=== PATIENT | male | born 1980 | race Caucasian/White ===

== ENCOUNTER → 2017-09-05 | Emergency (ER) | payer OTHER ==
[~2017-09-05] VITALS: Ht 160 cm; Wt 54.4 kg
[~2017-09-05] MED LIST: ALBUTEROL2.5 MG/3 M IH; TRIUMEQ TABLET1 EACH PO; ZYNCOF 20-400120 ML PO
== END | disposition home or self-care (01) ==
LOC: ER 22:21
DX: J40 Bronchitis, not specified as acute or chronic (principal); B20 Human immunodeficiency virus [HIV] disease

== ENCOUNTER 2017-11-13 08:35 | Emergency (ER) | payer OTHER ==
[~2017-11-13] VITALS: Ht 162.6 cm; Wt 56.7 kg
[2017-11-13] MEDS ORDERED: TRIUMEQ TABLET1 EACH (08:43)
[2017-11-13] MEDS ORDERED: MEDROLPACK PO (12:59)
[2017-11-13] MEDS ORDERED: DICLOFENAC POTA50 MG PO (12:59)
== END 2017-11-13 13:14 | disposition home or self-care (01) ==
LOC: ER 08:35
DX: S00.83XA Contusion of other part of head, initial encounter (principal); S20.212A Contusion of left front wall of thorax, initial encounter; S20.211A Contusion of right front wall of thorax, initial encounter; Y08.89XA Assault by other specified means, initial encounter; Y93.89 Activity, other specified; Y92.89 Other specified places as the place of occurrence of the external cause; Y99.8 Other external cause status

== ENCOUNTER 2019-09-03 18:20 | Emergency (ER) | payer OTHER ==
[~2019-09-03] VITALS: Ht 162.6 cm; Wt 56.7 kg
[~2019-09-03 18:20] MED LIST changes: +DICLOFENAC POTA50 MG PO; +MEDROLPACK PO; +TRIUMEQ TABLET1 EACH
[2019-09-03] MEDS ORDERED: NASAL MIST126 ML (18:44)
[2019-09-03] MEDS ORDERED: FLORANEX TABLE1 EACH (18:44)
== END 2019-09-03 23:38 | disposition home or self-care (01) ==
LOC: ER 18:20
DX: B20 Human immunodeficiency virus [HIV] disease (principal); K80.80 Other cholelithiasis without obstruction

== ENCOUNTER 2019-10-30 09:16 | Emergency (ER) | payer OTHER ==
[~2019-10-30] VITALS: Ht 162.6 cm; Wt 58.1 kg
[~2019-10-30 09:16] MED LIST changes: +FLORANEX TABLE1 EACH; +NASAL MIST126 ML
[2019-10-30] MEDS ORDERED: ZYRTEC10 M3 (09:26)
[2019-10-30] MEDS ORDERED: PRILOSEC OTC20 MG (09:27)
[2019-10-30] MEDS ORDERED: BENTYL10 MG/1 ML (09:27)
== END 2019-10-30 13:29 | disposition home or self-care (01) ==
LOC: ER 09:16
DX: B20 Human immunodeficiency virus [HIV] disease (principal); R17 Unspecified jaundice; B15.9 Hepatitis A without hepatic coma; B19.10 Unspecified viral hepatitis B without hepatic coma; R16.0 Hepatomegaly, not elsewhere classified

== ENCOUNTER → 2019-11-02 | Outpatient (CLI) | payer OTHER ==
[~2019-11-02] MED LIST changes: +BENTYL10 MG/1 ML; +PRILOSEC OTC20 MG; +ZYRTEC10 M3
== END | disposition home or self-care (01) ==
LOC: MRI 07:15
DX: R17 Unspecified jaundice (principal)
CPT/HCPCS: 74183

== ENCOUNTER 2020-01-12 12:29 | Emergency (ER) | payer OTHER ==
[~2020-01-12] VITALS: Ht 162.6 cm; Wt 55.3 kg
== END 2020-01-12 18:53 | disposition home or self-care (01) ==
LOC: ER 12:29
DX: B34.9 Viral infection, unspecified (principal)

== ENCOUNTER 2021-08-03 11:29 | Emergency (ER) | payer OTHER ==
[~2021-08-03] VITALS: Ht 160 cm; Wt 54.4 kg
[2021-08-03] MEDS ORDERED: CLEOCIN HCL300 MG (11:44)
[2021-08-03] MEDS ORDERED: HIBICLENS118 ML TOP (12:20)
[2021-08-03] MEDS ORDERED: INTESTINEX680 M1 PO (12:20)
== END 2021-08-03 12:47 | disposition home or self-care (01) ==
LOC: ER 11:29
DX: B20 Human immunodeficiency virus [HIV] disease (principal); L02.215 Cutaneous abscess of perineum

== ENCOUNTER 2021-09-28 13:43 | Emergency (ER) | payer OTHER ==
[~2021-09-28] VITALS: Ht 162.6 cm; Wt 59.0 kg
[~2021-09-28 13:43] MED LIST changes: +CLEOCIN HCL300 MG; +HIBICLENS118 ML TOP; +INTESTINEX680 M1 PO
[2021-09-28] MEDS ORDERED: PEPCID AC20 MG PO (18:04)
[2021-09-28] MEDS ORDERED: PROBIOTIC1 EAC4 PO (18:04)
== END 2021-09-28 18:18 | disposition home or self-care (01) ==
LOC: ER 13:43
DX: E86.0 Dehydration (principal); R19.7 Diarrhea, unspecified; Z20.822 Contact with and (suspected) exposure to COVID-19; B34.9 Viral infection, unspecified

== ENCOUNTER 2021-10-22 09:07 | Emergency (ER) | payer OTHER ==
[~2021-10-22] VITALS: Ht 162.6 cm; Wt 56.7 kg
[~2021-10-22 09:07] MED LIST changes: +PEPCID AC20 MG PO; +PROBIOTIC1 EAC4 PO
== END 2021-10-22 12:59 | disposition home or self-care (01) ==
LOC: ER 09:07
DX: K80.20 Calculus of gallbladder without cholecystitis without obstruction (principal)

== ENCOUNTER 2022-01-30 10:32 | Emergency (ER) | payer OTHER ==
[~2022-01-30] VITALS: Ht 165.1 cm; Wt 54.4 kg
== END 2022-01-30 13:11 | disposition home or self-care (01) ==
LOC: ER 10:32
DX: J03.80 Acute tonsillitis due to other specified organisms (principal); B96.89 Other specified bacterial agents as the cause of diseases classified elsewhere

== ENCOUNTER 2022-07-16 11:49 | Emergency (ER) | payer OTHER ==
[~2022-07-16] VITALS: Ht 162.6 cm; Wt 49.9 kg
[2022-07-16] MEDS ORDERED: DOLOGEN CAPLET1 EACH PO (17:18)
== END 2022-07-16 18:43 | disposition home or self-care (01) ==
LOC: ER 11:49
DX: A90 Dengue fever [classical dengue] (principal); Z20.822 Contact with and (suspected) exposure to COVID-19

== ENCOUNTER 2023-01-24 18:22 | Emergency (ER) | payer OTHER ==
[~2023-01-24] VITALS: Ht 162.6 cm; Wt 54.4 kg
[~2023-01-24 18:22] MED LIST changes: +DOLOGEN CAPLET1 EACH PO
== END 2023-01-24 21:28 | disposition home or self-care (01) ==
LOC: ER 18:22
DX: K52.89 Other specified noninfective gastroenteritis and colitis (principal); R10.9 Unspecified abdominal pain; R11.10 Vomiting, unspecified; A08.8 Other specified intestinal infections; E86.0 Dehydration; Z20.822 Contact with and (suspected) exposure to COVID-19

== ENCOUNTER 2024-01-18 14:26 | Emergency (ER) | payer OTHER ==
[~2024-01-18] VITALS: Ht 162.6 cm; Wt 54.4 kg
[2024-01-18] MEDS ORDERED: KETOROLAC TROMETHAMINE 60 MG VIAL IM ONE (17:15)
[2024-01-18] MEDS ORDERED: 0.9 % SODIUM CHLORIDE 500 ML IV SCH (17:15)
[2024-01-18 18:06] LABS: HEMATOCRIT 33.1 % (39.0-48.0); HEMOGLOBIN 10.8 g/dL (13-16.00); MEAN CELL VOLUME 84.3 fL (80.0-100.00); MEAN CORPUSCULAR HEMOGLOBIN 27.4 pg (27.00-32.0); MEAN CORPUSCULAR HGB CONC 32.5 g/dl (32.0-36.0); PLATELET COUNT 198 K/uL (150-450); RED BLOOD COUNT 3.93 M/uL (4.00-6.00); RED CELL DISTRIBUTION WIDTH 14.8 % (11.5-14.5)
[2024-01-18 18:42] LABS: ALBUMIN 2.6 gm/dL (3.4-5.0); BILIRUBIN TOTAL 0.35 mg/dL (0.3-1.2); CALCIUM 8.5 mg/dL (8.5-10.1); GFR 81.55; GLOBULINA 5.8 G/DL (2.4-3.5); POTASSIUM 4.25 mEq/L (3.5-5.1); TOTAL PROTEIN 8.4 gm/dL (6.4-8.2)
[2024-01-18 19:01] LABS: PH,URINE 6.5 (5.0-8.0); URINE APPEARANCE Clear; URINE BILIRRUBIN Negative (NEGATIVE); URINE BLOOD Negative; URINE COLOR Yellow; URINE GLUCOSE Negative (NEGATIVE); URINE LEUKOCYTE Negative; URINE NITRATE Negative; URINE PROTEIN Negative (NEGATIVE); URINE UROBILINOGEN 0.2 E.U./dl
[2024-01-18 19:04] LABS: URINE BACTERIA 16.3 uL (0.0-1933); URINE WBC 1.9 uL (0.0-23.2)
[2024-01-18 19:05] LABS: URINE EPITHELIAL CELLS 0.9 uL (0.0-38.8); URINE RBC 1.9 uL (0.0-20.8)
[2024-01-18] MEDS ORDERED: AZITHROMYCIN 500 MG TABLET PO ONE (21:45)
[2024-01-18] MEDS ORDERED: CEFTRIAXONE SODIUM 1,000 MG VIAL IV ONE (22:00)
[2024-01-18] MEDS ORDERED: LOPERAMIDE HCL 2 MG CAPSULE PO ONE (22:00)
== END 2024-01-18 22:17 | disposition home or self-care (01) ==
LOC: ER 14:27
PROVIDERS: Emergency Medicine
DX: J40 Bronchitis, not specified as acute or chronic (principal); J32.9 Chronic sinusitis, unspecified; R19.7 Diarrhea, unspecified

== ENCOUNTER 2024-11-11 12:29 | Emergency (ER) | payer OTHER ==
[~2024-11-11] VITALS: Ht 162.6 cm; Wt 49.9 kg
[2024-11-11] MEDS ORDERED: 0.9 % SODIUM CHLORIDE 1,000 ML IV STA (13:44)
[2024-11-11 14:40] LABS: HEMATOCRIT 31.7 % (39.0-48.0); MEAN CELL VOLUME 83.2 fL (80.0-100.00); MEAN CORPUSCULAR HEMOGLOBIN 27.2 pg (27.00-32.0); MEAN CORPUSCULAR HGB CONC 32.7 g/dl (32.0-36.0); PLATELET COUNT 460 K/uL (150-450); RED BLOOD COUNT 3.81 M/uL (4.00-6.00); RED CELL DISTRIBUTION WIDTH 15.9 % (11.5-14.5)
[2024-11-11 14:41] LABS: HEMOGLOBIN 10.4 g/dL (13-16.00)
[2024-11-11 15:01] LABS: PH,URINE 6.5 (5.0-8.0); URINE APPEARANCE Clear; URINE BILIRRUBIN Negative (NEGATIVE); URINE BLOOD Negative; URINE COLOR Yellow; URINE GLUCOSE Negative (NEGATIVE); URINE KETONE Trace (NEGATIVE); URINE LEUKOCYTE Small; URINE NITRATE Negative; URINE PROTEIN 30 (NEGATIVE); URINE UROBILINOGEN 0.2 E.U./dl
[2024-11-11 15:05] LABS: URINE BACTERIA 37.9 uL (0.0-1933); URINE EPITHELIAL CELLS 21.2 uL (0.0-38.8); URINE RBC 11.7 uL (0.0-20.8); URINE WBC 123.6 uL (0.0-23.2)
[2024-11-11 15:22] LABS: URINE CAST 0.58 uL (0.0-1.40)
[2024-11-11 15:23] LABS: URINE CRYSTALS FEW /HPF
[2024-11-11 15:30] LABS: INFLUENZA A AG NEGATIVE (NEGATIVE)
[2024-11-11 15:45] LABS: ALBUMIN 2.9 gm/dL (3.4-5.0); ALKALINE PHOSPHATASE 115 U/L (50-136); ALT/SGPT 87 U/L (12-78); ANION GAP 10 (10.0-20.0); AST/SGOT 87 U/L (15-37); BILIRUBIN TOTAL 0.23 mg/dL (0.3-1.2); BILIRUBIN,CONJUGATED < 0.10 mg/dL (0.0-0.2); BILIRUBIN,UNCONJUGATED 0.13 mg/dL (0.0-0.6); BLOOD UREA NITROGEN 9 mg/dL (7-18); BUN CREA RATIO 13 (7.0-25.0); CALCIUM 8.4 mg/dL (8.5-10.1); CARBON DIOXIDE 28 mEq/L (21-32); CHLORIDE 105 mmol/L (98-107); GFR 122.51; GLUCOSE FASTING 87 mg/dL (65-100); OSMOLALITY SERUM 276 MOSM/KG (275-295); POTASSIUM 3.59 mEq/L (3.5-5.1); SODIUM 139 mmol/L (136-145); TOTAL PROTEIN 8.9 gm/dL (6.4-8.2)
[2024-11-11 15:56] LABS: C-REACTIVE PROTEIN 0.66 MG/DL (0.00-0.29)
[2024-11-11] MEDS ORDERED: FAMOTIDINE/PF 20 MG in 0.9 % SODIUM CHLORIDE 8 ML IV PUSH STA (16:54)
[2024-11-11] MEDS ORDERED: FAMOTIDINE/PF 20 MG/2 ML VIAL ONE (16:57)
[2024-11-11] MEDS ORDERED: CIPROFLOXACIN IN 5 % DEXTROSE 400 MG/200 ML PIGGYBAG IV ONE ×2 (16:57→17:00)
[2024-11-11] MEDS ORDERED: CIPRO500 MG PO (17:11)
[2024-11-11] MEDS ORDERED: FLUCONAZOLE100 MG PO (17:11)
== END 2024-11-11 19:37 | disposition home or self-care (01) ==
LOC: ER 12:39
PROVIDERS: General Practice
DX: R19.7 Diarrhea, unspecified (principal); B20 Human immunodeficiency virus [HIV] disease

== ENCOUNTER 2024-12-09 11:41 | Emergency (ER) | payer OTHER ==
[~2024-12-09] VITALS: Ht 162.6 cm; Wt 46.3 kg
[~2024-12-09 11:41] MED LIST changes: +CIPRO500 MG PO; +FLUCONAZOLE100 MG PO
[2024-12-09] MEDS ORDERED: [UNRECOGNIZED DRUG - OTHER] PO (12:12)
[2024-12-09] MEDS ORDERED: 0.9 % SODIUM CHLORIDE 1,000 ML IV STA (14:52)
[2024-12-09] MEDS ORDERED: FAMOtidine 10 MG/ML (4ML VIAL) IV PUSH STA (14:53)
[2024-12-09] MEDS ORDERED: HYOSCYAMINE SULFATE 0.125 MG TAB.SUBL SL ONE (15:00)
[2024-12-09] MEDS ORDERED: FAMOTIDINE/PF 20 MG/2 ML VIAL ONE (15:20)
[2024-12-09] MEDS ORDERED: HYOSCYAMINE SULFATE 0.125 MG TAB.SUBL ONE (15:20)
[2024-12-09 15:49] LABS: BASO % 0.7 % (0.1-1.2); EOS # 0.16 (0.04-0.54); EOS % 2.8 % (0.7-7.0); HEMATOCRIT 30.7 % (40.1-51.0); HEMOGLOBIN 9.9 g/dL (13.7-17.5); LYMPH # 2.38 (1.18-3.74); LYMPH % 41.3 % (19.3-53.1); MEAN CORPUSCULAR HEMOGLOBIN 27.1 pg (25.6-32.2); MONO # 0.42 (0.24-0.82); MONO % 7.3 % (4.7-12.5); NEUT # 2.73 (1.56-6.13); NEUT % 47.4 % (34.0-71.1); PLATELET COUNT 308 K/uL (163-369); RED BLOOD COUNT 3.65 M/uL (4.63-6.08); RED CELL DISTRIBUTION WIDTH 16.3 % (11.6-14.4)
[2024-12-09 16:17] LABS: BILIRUBIN TOTAL 0.61 mg/dL (0.3-1.2); CALCIUM 8.4 mg/dL (8.5-10.1); CREATININE SERUM 0.85 mg/dL (0.70-1.30); GFR 97.92; GLOBULINA 4.9 G/DL (2.4-3.5); POTASSIUM 3.52 mEq/L (3.5-5.1); TOTAL PROTEIN 7.9 gm/dL (6.4-8.2)
[2024-12-09] MEDS ORDERED: METRONIDAZOLE/SODIUM CHLORIDE 500 MG/100 ML PIGGYBACK IV ONE ×2 (19:30→19:39)
[2024-12-09] MEDS ORDERED: DIPHENOXYLATE HCL/ATROPINE 1 UDTAB TABLET PO ONE (19:30)
[2024-12-09 20:16] LABS: FECAL LEUKOCYTES POSITIVE (NEGATIVE)
[2024-12-09] MEDS ORDERED: PROTONIX40 MG PO (22:12)
[2024-12-09] MEDS ORDERED: INTESTINEX680 M1 PO (22:12)
[2024-12-09] MEDS ORDERED: METRONIDAZOLE500 MG PO (22:12)
== END 2024-12-09 22:19 | disposition home or self-care (01) ==
LOC: ER 11:52
DX: K52.9 Noninfective gastroenteritis and colitis, unspecified (principal); Z88.2 Allergy status to sulfonamides

== ENCOUNTER → 2025-01-09 | Emergency (ER) | payer OTHER ==
[~2025-01-09] VITALS: Ht 162.6 cm; Wt 50.3 kg
[~2025-01-09] MED LIST changes: +ACETAMINOPHEN 500 MG GEL..CAP PO ONE; +DAPSONE25 MG; +DAPSONE25 MG PO; +GUAIFENESIN 200 MG/10 ML BLIST.PACK PO ONE; +IPRATROPIUM BROMIDE 0.5 MG/2.5 ML AMPUL.NEB IH SCH; +METRONIDAZOLE500 MG PO; +PROTONIX40 MG PO; +[UNRECOGNIZED DRUG - OTHER] PO
[2025-01-09 15:10] LABS: URINE APPEARANCE Cloudy; URINE BILIRRUBIN Negative (NEGATIVE); URINE BLOOD Large; URINE COLOR Yellow; URINE GLUCOSE Negative (NEGATIVE); URINE KETONE Trace (NEGATIVE); URINE LEUKOCYTE Small; URINE NITRATE Negative; URINE UROBILINOGEN 1.0 E.U./dl
[2025-01-09 15:13] LABS: URINE BACTERIA 54.0 uL (0.0-1933); URINE EPITHELIAL CELLS 2.3 uL (0.0-38.8); URINE RBC 693.4 uL (0.0-20.8); URINE WBC 234.0 uL (0.0-23.2)
[2025-01-09 15:17] LABS: URINE CAST 0.14 uL (0.0-1.40); URINE PROTEIN 300 (NEGATIVE)
[2025-01-09 15:28] LABS: COVID-19 AG NEGATIVE (NEGATIVE)
== END | disposition home or self-care (01) ==
LOC: ER 13:47
PROVIDERS: General Practice
DX: J06.9 Acute upper respiratory infection, unspecified (principal); R30.0 Dysuria; Z88.2 Allergy status to sulfonamides; Z20.822 Contact with and (suspected) exposure to COVID-19

== ENCOUNTER 2025-02-23 06:07 | Emergency (ER) | payer OTHER ==
[~2025-02-23] VITALS: Ht 162.6 cm; Wt 52.2 kg
[~2025-02-23 06:07] MED LIST changes: -ACETAMINOPHEN 500 MG GEL..CAP PO ONE; -GUAIFENESIN 200 MG/10 ML BLIST.PACK PO ONE; -IPRATROPIUM BROMIDE 0.5 MG/2.5 ML AMPUL.NEB IH SCH
[2025-02-23] MEDS ORDERED: 0.9 % SODIUM CHLORIDE 1,000 ML IV STA (08:21)
[2025-02-23 08:56] LABS: BASO % 0.1 % (0.1-1.2); EOS # 0.12 (0.04-0.54); EOS % 1.2 % (0.7-7.0); LYMPH # 1.95 (1.18-3.74); LYMPH % 19.2 % (19.3-53.1); MEAN PLATELET VOLUME 9.00 fl (9.4-12.4); MONO # 0.47 (0.24-0.82); MONO % 4.6 % (4.7-12.5); NEUT # 7.60 (1.56-6.13); NEUT % 74.7 % (34.0-71.1); RED CELL DISTRIBUTION WIDTH 15.6 % (11.6-14.4)
[2025-02-23 09:22] LABS: ALT/SGPT 26.0 U/L (12-78); AST/SGOT 22.0 U/L (15-37); BILIRUBIN TOTAL 1.21 mg/dL (0.3-1.2); BUN CREA RATIO 13.0 (7.0-25.0); CREATININE SERUM 1.01 mg/dL (0.70-1.30); GFR 79.88; GLOBULINA 5.5 G/DL (2.4-3.5); GLUCOSE FASTING 113.0 mg/dL (65-100); OSMOLALITY SERUM 280.0 MOSM/KG (275-295)
[2025-02-23 09:47] LABS: COVID-19 AG NEGATIVE (NEGATIVE)
[2025-02-23 10:29] LABS: URINE APPEARANCE Clear; URINE BILIRRUBIN Negative (NEGATIVE); URINE BLOOD Negative; URINE COLOR Dark Yellow; URINE GLUCOSE Negative (NEGATIVE); URINE KETONE Trace (NEGATIVE); URINE LEUKOCYTE Negative; URINE NITRATE Negative; URINE PROTEIN Trace (NEGATIVE); URINE UROBILINOGEN 0.2 E.U./dl
[2025-02-23 10:33] LABS: URINE BACTERIA 16.7 uL (0.0-1933); URINE CAST 15.25 uL (0.0-1.40); URINE EPITHELIAL CELLS 22.9 uL (0.0-38.8); URINE RBC 3.5 uL (0.0-20.8); URINE WBC 12.6 uL (0.0-23.2)
[2025-02-23] MEDS ORDERED: METRONIDAZOLE500 MG PO (13:54)
[2025-02-23] MEDS ORDERED: CIPRO500 MG PO (13:54)
[2025-02-23] MEDS ORDERED: PROBIOTIC1 EAC2 PO (13:54)
[2025-02-23] MEDS ORDERED: PEPCID AC20 MG PO (13:54)
[2025-02-23] MEDS ORDERED: FLUCONAZOLE200 MG PO (13:54)
== END 2025-02-23 14:49 | disposition home or self-care (01) ==
LOC: ER 06:07
DX: R19.7 Diarrhea, unspecified (principal); B37.9 Candidiasis, unspecified; B20 Human immunodeficiency virus [HIV] disease; Z20.822 Contact with and (suspected) exposure to COVID-19; Z88.2 Allergy status to sulfonamides

== ENCOUNTER 2025-03-16 08:12 | Emergency (ER) | payer OTHER ==
[~2025-03-16] VITALS: Ht 162.6 cm; Wt 54.4 kg
[~2025-03-16 08:12] MED LIST changes: +FLUCONAZOLE200 MG PO; +PROBIOTIC1 EAC2 PO
[2025-03-16 08:14] VITALS: BP 155/82; O2SAT 100
[2025-03-16] MEDS ORDERED: FAMOTIDINE/PF 20 MG/2 ML VIAL IV PUSH ONE (08:30)
[2025-03-16] MEDS ORDERED: SUCRALFATE 1 G TABLET PO ONE (08:30)
[2025-03-16 08:46] LABS: BASO % 0.7 % (0.1-1.2); EOS # 0.16 (0.04-0.54); EOS % 3.6 % (0.7-7.0); LYMPH # 2.84 (1.18-3.74); LYMPH % 63.1 % (19.3-53.1); MEAN PLATELET VOLUME 8.80 fl (9.4-12.4); MONO # 0.43 (0.24-0.82); MONO % 9.6 % (4.7-12.5); NEUT # 1.04 (1.56-6.13); NEUT % 23.0 % (34.0-71.1); RED CELL DISTRIBUTION WIDTH 14.2 % (11.6-14.4)
[2025-03-16 09:21] LABS: ALT/SGPT 20.0 U/L (12-78); AST/SGOT 13.0 U/L (15-37); BILIRUBIN TOTAL 0.46 mg/dL (0.3-1.2); BUN CREA RATIO 8.0 (7.0-25.0); CREATININE SERUM 0.79 mg/dL (0.70-1.30); GFR 106.06; GLOBULINA 4.4 G/DL (2.4-3.5); GLUCOSE FASTING 101.0 mg/dL (65-100); OSMOLALITY SERUM 285.0 MOSM/KG (275-295)
[2025-03-16 10:58] LABS: URINE APPEARANCE Clear; URINE BILIRRUBIN Negative (NEGATIVE); URINE BLOOD Negative; URINE COLOR Yellow; URINE GLUCOSE Negative (NEGATIVE); URINE KETONE Negative (NEGATIVE); URINE LEUKOCYTE Negative; URINE NITRATE Negative; URINE PROTEIN Negative (NEGATIVE); URINE UROBILINOGEN 0.2 E.U./dl
[2025-03-16 10:59] LABS: URINE EPITHELIAL CELLS 1.5 uL (0.0-38.8); URINE WBC 5.8 uL (0.0-23.2)
[2025-03-16 11:12] LABS: URINE BACTERIA 1.1 uL (0.0-1933); URINE CAST 0.00 uL (0.0-1.40); URINE RBC 0.7 uL (0.0-20.8)
== END 2025-03-16 13:06 | disposition home or self-care (01) ==
LOC: ER 08:12
PROVIDERS: Emergency Medicine
DX: R10.9 Unspecified abdominal pain (principal); Z88.2 Allergy status to sulfonamides; K29.70 Gastritis, unspecified, without bleeding; K80.20 Calculus of gallbladder without cholecystitis without obstruction